=== PATIENT | male | born 1945 | race Caucasian/White ===

== ENCOUNTER → 2017-05-05 | Day surgery (SDC) | payer MEDICARE ==
[~2017-05-05] VITALS: Ht 188 cm; Wt 100.0 kg
[~2017-05-05] MED LIST: APIX5TAB PO; Atropine 1 mg/10 mL (Code) Syringe ONE; METO50TA3 PO; Methohexital 10 mg/mL 50 mL Inj ONE; SIMV40TA5 PO; TAMS0.4C98 PO; TRAZ-118 PO
[2017-05-05 12:31] VITALS: BP 127/86; PULSE 124; RESP 13
[2017-05-05 12:52] LABS: BASOPHILS % (AUTO) 0.7 % (0-3); EOSINOPHILS % (AUTO) 2.7 % (0-5); MONOCYTES % (AUTO) 11.9 % (4-12); Mean Corpuscular Hemoglobin 30.7 pg (27.0-35.0); Mean Corpuscular Volume 88.2 fL (81-100); NEUTROPHILS % (AUTO) 61.3 % (40-74); Platelet Count 174 bil/L (150-400)
[2017-05-05 12:56] LABS: INR 1.13 ratio
== END | disposition home or self-care (01) ==
LOC: SPI 00:05
PROVIDERS: ATTEND Internal Medicine Cardiovascular Disease
DX: I48.1 Persistent atrial fibrillation (principal); Z53.9 Procedure and treatment not carried out, unspecified reason; I25.10 Atherosclerotic heart disease of native coronary artery without angina pectoris; Z79.01 Long term (current) use of anticoagulants

== ENCOUNTER → 2017-05-19 | Day surgery (SDC) | payer MEDICARE ==
[2017-05-19] VITALS (9 sets, daily range): BP systolic 122–172; BP diastolic 87–123; PULSE 65–83; RESP 11–18; O2SAT 96–98
[~2017-05-19] VITALS: Ht 188 cm; Wt 104.5 kg
[~2017-05-19] MED LIST changes: +0.9% Sodium Chloride 1,000 ML IV SCH; -Atropine 1 mg/10 mL (Code) Syringe ONE; +Methohexital 10 mg/mL 50 mL Inj IV ONE; -Methohexital 10 mg/mL 50 mL Inj ONE; -TAMS0.4C98 PO
[2017-05-19 10:36] LABS: BASOPHILS % (AUTO) 0.7 % (0-3); EOSINOPHILS % (AUTO) 3.1 % (0-5); MONOCYTES % (AUTO) 11.1 % (4-12); Mean Corpuscular Hemoglobin 30.4 pg (27.0-35.0); Mean Corpuscular Volume 88.4 fL (81-100); NEUTROPHILS % (AUTO) 63.3 % (40-74); Platelet Count 170 bil/L (150-400)
[2017-05-19 10:53] LABS: INR 1.05 ratio
--- NOTE | 2017-05-19 13:05 | PCM.PROC ---
Procedure Note Date of Service: May 19, 2017 Pre Procedure Diagnosis: Persistent atrial fibrillation Post Procedure Diagnosis: Persistent atrial fibrillation Procedure: Synchronized DC Cardioversion Indication for Procedure: Persistent atrial fibrillation Findings: Successful synchronized DC cardioversion from persistent atrial fibrillation to normal sinus rhythm. Procedural Analgesia: Brevital 45mg IV X1 Procedure Details: After confirming that the patient has been taking eliquis 5mg twice daily for the last three consecutive weeks, patient received Brevital 45mg IV X1 for sedation. Upon sedation, he received synchronized 200J DC shock that converted his rhythm from persistent atrial fibrillation to normal sinus rhythm. COMPLICATIONS: none Buddy Li MD May 19, 2017 13:05
== END | disposition home or self-care (01) ==
LOC: SOUO 00:06
PROVIDERS: ATTEND Internal Medicine Cardiovascular Disease
DX: I48.1 Persistent atrial fibrillation (principal); I25.10 Atherosclerotic heart disease of native coronary artery without angina pectoris; Z95.1 Presence of aortocoronary bypass graft; I10 Essential (primary) hypertension; E78.5 Hyperlipidemia, unspecified; J44.9 Chronic obstructive pulmonary disease, unspecified; Z79.82 Long term (current) use of aspirin; Z79.01 Long term (current) use of anticoagulants; Z87.891 Personal history of nicotine dependence
CPT/HCPCS: 36415; 80048; 85025; 85610; 92960; 93005; 99152; J7030